=== PATIENT | male | born 1955 | race African-American/Black ===

== ENCOUNTER → 2016-08-14 | Outpatient (CLI) | payer BC ==
[~2016-08-14] MED LIST: ALEVE220 M1 PO; ATIVAN PO; CIPRO PO; FAMOTIDINE PO; HYDROCHLOROTH12.5 M1 PO; K-DUR20 ME2 PO; LIORESAL10 MG PO; NEXIUM PO; NO MEDICATIONS; REGLAN PO; ST. JOSEPH ASP325 MG PO; TAMIFLU75 M1 PO; VICODIN PO; ZOFRAN PO; [UNRECOGNIZED DRUG - REMARK]
--- NOTE | ~2016-08-14 | MR113 ---
[facility] A Service of [facility] & [facility] RADIOLOGY TEXT RESULTS PATIENT: PEYTON MARTINEZ SR [facility] : 55 UNIT #: [id number] AGE: [address]: Russell Hernández MD SEX: M ORDER DR: [id number] [facility] [address] [place], [place] [address] [id number] O MR#: [id number] Acc #: [id number] NAME: PEYTON MARTINEZ : 1955 SEX: M STUDY DATE/TIME: 08/14/2016 16:11 UNIT: [facility] ROOM: STUDY DESCRIPTION: MR Lumbar Wo Contrast Attending Physician: Russell Hernández M.D. Referring Physician: Russell Hernández M.D. Ordering Physician: Russell Hernández M.D. Primary Care Physician: Russell Hernández M.D. MRI CENTER REPORT This report is preliminary unless electronic signature is present. EXAM MRI of the lumbar spine without. HISTORY 61-year-old patient with low back pain for 5 years. Pain radiates into the left hip and left leg with numbness for 1 year. No known injury. History of prostate cancer diagnosed in 2013. No history of lumbar spine surgery. COMMENT MRI of the lumbar spine performed without contrast using routine 1.5T imaging technique. Images are relatively signal poor, but the reason for this is not clear. Comparison is made to a CT scan abdomen and pelvis from 04/10/2012. This patient has levoconvex lumbar scoliosis with about 1.2 cm of left lateral listhesis of L3 on L4. There is wedging of the right side of the L3 vertebral body associated with this and there is mild reversal of lower lumbar lordosis with about 4 mm of degenerative retrolisthesis of L5 on S1. The intervertebral discs are desiccated L2-3 through L5-S1 with multilevel loss of intervertebral disc height, relatively severe. There are associated marrow endplate degenerative changes and these are most prominent at the L2-3 level where they are predominately type 1. The conus medullaris terminates at L2-3 and is normal. At T11-12, there is bilateral facet degenerative change concentric desiccated disc bulging with a superimposed broad posterior protrusion. Findings result in very mild canal stenosis. The foramina are poorly seen but there is probably foraminal impingement. At T12-L1, bilateral facet degenerative change rbllwiqa-wo-xlstsa left greater than right with broad-based posterior disc protrusion and some endplate spondylosis. There is mild cord flattening and canal stenosis [facility] A Service of [facility] RADIOLOGY TEXT RESULTS PATIENT: PEYTON MARTINEZ SR LOCATION: [facility] : 55 UNIT #: [id number] AGE: [address]: Russell Hernández MD SEX: M ORDER DR: and mass effect on left greater than right lateral recess. There is bilateral foraminal impingement which is probably significant and worse to the left. At L1-2, moderate facet degenerative change bilaterally with moderate ligamentum flavum thickening. There is left posterolateral extrusion remaining contiguous with the disc in the left 1-2 foramen. There is usmh-bu-egjoynrp foraminal narrowing on the left. There is mild canal stenosis. Mild right foraminal narrowing. At L2-3, moderate right, lxtc-mt-crqjtufd left-side facet degenerative change with ligamentum flavum thickening. There is broad-based posterior disc protrusion more prominent into the inferior foramina. There is wsyz-dc-zmmyhvjl central canal stenosis. There is mild left and moderate to severe right-side foraminal impingement. Probably a component of focal right posterolateral extrusion into the right 2-3 foramen remaining contiguous with the disc. At L3-4, there is moderate facet degenerative change bilaterally with ligamentum flavum thickening. There is a broad-based posterior protrusion/extrusion with mass effect on the shqz-myvoqia-huvx-right lateral recess. There is fairly severe central canal stenosis. There is severe right and left side foraminal impingement. At L4-5, there is ogji-tm-fuzzfpwr right, mukmdzdi-dg-yrfiiq left-sided facet arthritis with ligamentum flavum thickening. There is broad-based posterior desiccated disc material and endplate spondylosis. Combination of findings result in moderate central canal stenosis with mass effect on left greater than right lateral recess. There is approximately moderate right and severe left-side foraminal impingement. At L5-S1, there is mild facet degenerative change bilaterally with posterior osteophytic ridging and desiccated disc material. There is effacement of the anterior thecal sac with mild mass effect on the bilateral-lateral recesses but no central canal stenosis. There is qoyxvcuv-rr-brnwkd bilateral foraminal impingement. Partly seen are multiple right renal masses which are probably cysts. They were present on the study of 2012 CT scanning but I believe there are larger and I would suggest at least a followup ultrasound to reassess if not recently performed elsewhere. There is a previous MRI of the lumbar spine from 2007 and there is considerable progression of lumbar spine degenerative disease since that time. There is also worsening of scoliosis/alignment. IMPRESSION 1. Significant multiple level lumbar degenerative change with multiple level severe canal and foraminal impingement. Please refer to the [facility] A Service of [facility] RADIOLOGY TEXT RESULTS PATIENT: PEYTON MARTINEZ SR LOCATION: [facility] : 55 UNIT #: [id number] AGE: [address]: Russell Hernández MD SEX: M ORDER DR: didxi-iu-kzttm description of findings. This is significantly progressed from the study of 2007. 2. Partly seen are what are probably multiple right-sided enlarging renal cysts. There are, however, only incompletely included in the field of view. If not recently performed elsewhere, I would recommend at least a followup ultrasound study to better characterize the masses. Dictated by... Amanda Alexander M.D. THIS IS AN ELECTRONICALLY VERIFIED REPORT Amanda Alexander M.D. at 08/15/2016 2:56 PM SUDHA/ravi TD: 08/15/2016 12:09 JOB #: [id number] MRI CENTER REPORT Page 1 of 1 COPY
== END | disposition home or self-care (01) ==
LOC: CMRI 15:18
DX: M54.40 Lumbago with sciatica, unspecified side (principal); M47.896 Other spondylosis, lumbar region
CPT/HCPCS: 72148